=== PATIENT | female | born 1955 | race Caucasian/White ===

== ENCOUNTER → 2016-12-02 | Outpatient (REF) | payer BC | LOC: M LABDRAW1 12:43 | PROVIDERS: ATTEND Surgery | DX: Z08 Encounter for follow-up examination after completed treatment for malignant neoplasm (principal); Z85.038 Personal history of other malignant neoplasm of large intestine ==

== ENCOUNTER → 2017-05-06 | Outpatient (CLI) | payer BC ==
[~2017-05-06] MED LIST: DIOV80TA2 PO; MULT1CHW39 PO; VITA100067 PO
--- NOTE | 2017-05-06 09:51 | REPMRS ---
Patient History The patient states she had a clinical breast exam in 04/28 Patient is postmenopausal, has history of colorectal cancer at age 61, and is nulliparous. Family history of breast cancer in mother at age 62. Took hormonal contraceptives for 25 years. Digital Woman Screen Mammo: May 06, 2017 - Exam #: [id number] Bilateral CC and MLO view(s) were taken. Technologist: Fern Tello, Technologist Prior study comparison: December 12, 2009, bilateral screening mammogram, performed at [facility] ([facility]). FINDINGS: The breast tissue is heterogeneously dense. This may lower the sensitivity of mammography. This mammogram was interpreted with the aid of an FDA-approved computer-aided dectection system. A. Negative x-ray reports should not delay biopsy if a dominant or clinically suspicious mass is present. B. Not all cancers are identified by mammography. C. Adenosis and dense breast may obscure an underlying neoplasm. No significant changes when compared with prior studies. Finding: There is no dominnt mass, microcalcificcluster or architectural distortion that would indicate malignancy. There are benign punctate calcifications bilaterally, unchanged. ASSESSMENT: BI-RADS/ACR category 2 mammogram. Benign finding(s). Recommendation Routine screening mammogram in 1 year. Electronically Signed By: Vargas Hagen M.D. 05/06/17 0900
== END ==
LOC: M WHC 07:51
PROVIDERS: ATTEND Nurse Practitioner Women's Health
DX: Z12.31 Encounter for screening mammogram for malignant neoplasm of breast (principal); Z85.038 Personal history of other malignant neoplasm of large intestine; Z80.3 Family history of malignant neoplasm of breast; Z92.0 Personal history of contraception

== ENCOUNTER → 2017-05-06 | Outpatient (REF) | payer BC | LOC: M SFHCWAGY 08:34 | PROVIDERS: ATTEND Nurse Practitioner Women's Health | DX: Z12.4 Encounter for screening for malignant neoplasm of cervix (principal) ==

== ENCOUNTER → 2017-07-10 | Outpatient (CLI) | payer BC ==
[~2017-07-10] MED LIST changes: +GASTROGRAFIN SOLUTION 30ML (Q9963) As Ordered ONE; +ISOVUE-370 76% 100ML VIAL (Q9967) As Ordered ONE
--- NOTE | 2017-07-11 05:20 | REP ---
Clinical: History of rectal cancer for follow up. Technique: Axial contrast enhanced images from the lung bases to the pubic symphysis using oral and 100 ml Isovue 370 intravenous contrast material with precontrast images of the abdomen as well as coronal and sagittal re-formations. Comparison: 07/23/2016. Findings: Few scattered hepatic hypodensities compatible with benign cysts measuring up to 1.8 cm remains stable along with 2.4 cm hemangioma in the lateral segment left lobe. Spleen, pancreas, gallbladder, bilateral adrenal glands and kidneys are normal. The enteric system is without obstruction or acute inflammatory process. Evidence for prior resection and anastomoses at the rectosigmoid junction appears stable. No ascites. No adenopathy. No recurrence or mass lesion identified. Pelvis demonstrates collapsed bladder and age-appropriate uterus/adnexa. Vasculature is normal and without aneurysm or dissection. Musculoskeletal structures demonstrate age-related degenerative changes without focal osseous abnormality. Impression: 1. Hepatic cysts and hemangioma remains stable. 2. Evidence for prior partial resection at the rectosigmoid junction. No evidence for adenopathy, fluid, mass lesion or recurrence. 3. Chronic age-related changes. 4. No acute abdominopelvic pathology appreciated. Signed by Adeel uBrch MD 07/11/2017 05:12 A
--- NOTE | 2017-07-11 05:25 | REP ---
Clinical: History of rectal cancer for follow up. Technique: Axial contrast enhanced images from the thoracic inlet to the upper abdomen using 100 ml Isovue 370 intravenous contrast material with coronal and sagittal re-formations. Findings: Lung hubbard are well-aerated and demonstrate mild chronic-appearing age-related interstitial changes. Small scattered 2-3 mm noncalcified nodules and non solid ground-glass nodules (GGN) are randomly identified throughout the lung hubbard and nonspecific. No focal consolidation, further significant nodule or mass lesion appreciated. No pleural effusion/reaction or pneumothorax. Tracheobronchial tree is patent. No significant axillary, hilar, or mediastinal adenopathy. Mediastinum demonstrates normal thoracic aorta, heart and pericardium. Surrounding musculoskeletal structures are intact and without focal osseous abnormality. Impression: Chronic-appearing interstitial changes are suggested along with few scattered small 2-3 mm nodules and GGN which are nonspecific. However, given the patient's history a follow-up examination in 3-6 months may be warranted. Signed by Adeel Burch MD 07/11/2017 05:17 A
== END ==
LOC: M RAD 12:04
PROVIDERS: ATTEND Surgery
DX: D13.4 Benign neoplasm of liver (principal); D18.09 Hemangioma of other sites; Z85.038 Personal history of other malignant neoplasm of large intestine
CPT/HCPCS: 71260; 74178; Q9963; Q9967

== ENCOUNTER 2017-08-28 10:46 | Day surgery (SDC) | payer BC ==
[~2017-08-28] VITALS: Ht 154.9 cm; Wt 65.8 kg
[~2017-08-28 10:46] MED LIST changes: -GASTROGRAFIN SOLUTION 30ML (Q9963) As Ordered ONE; -ISOVUE-370 76% 100ML VIAL (Q9967) As Ordered ONE
[2017-08-28] MEDS ORDERED: NS 1,000 ML IV ONE (11:15)
--- NOTE | 2017-08-28 12:10 | ROOR ---
Patient Name: Lucy Barr Procedure Date: 08/28/2017 11:50 AM Date of : 1955 Age: 62 Room: [facility] Gender: Female Note Status: Finalized Procedure: Colonoscopy Indications: High risk colon cancer surveillance: Personal history of colon cancer Providers: Franky Dhaliwal Jr, MD Referring MD: Yonatan Rodriguez MD Requesting Provider: Medicines: Propofol per Anesthesia Complications: No immediate complications. Procedure: Pre-Anesthesia Assessment: - Prior to the procedure, a History and Physical was performed, and patient medications and allergies were reviewed. The patient is competent. The risks and benefits of the procedure and the sedation options and risks were discussed with the patient. All questions were answered and informed consent was obtained. Patient identification and proposed procedure were verified by the physician and the nurse in the pre-procedure area and in the procedure room. Mental Status Examination: alert and oriented. Airway Examination: normal oropharyngeal airway and neck mobility. Respiratory Examination: clear to auscultation. CV Examination: normal. ASA Grade Assessment: II - A patient with mild systemic disease. After reviewing the risks and benefits, the patient was deemed in satisfactory condition to undergo the procedure. The anesthesia plan was to use moderate sedation / analgesia (conscious sedation). Immediately prior to administration of medications, the patient was re-assessed for adequacy to receive sedatives. The heart rate, respiratory rate, oxygen saturations, blood pressure, adequacy of pulmonary ventilation, and response to care were monitored throughout the procedure. The physical status of the patient was re-assessed after the procedure. The Colonoscope was introduced through the anus and advanced to the cecum, identified by appendiceal orifice and ileocecal valve. The colonoscopy was performed without difficulty. The patient tolerated the procedure well. The quality of the bowel preparation was adequate and good. Findings: The rectum, sigmoid colon, descending colon, transverse colon, ascending colon, cecum, appendiceal orifice and ileocecal valve appeared normal. The anastomosis appeared normal. Impression: - The rectum, sigmoid colon, descending colon, transverse colon, ascending colon, cecum, appendiceal orifice and ileocecal valve are normal. - The colonic anastomosis is normal. - No specimens collected. Recommendation: - Discharge patient to home (ambulatory). - Repeat colonoscopy in 5 years for surveillance. Franky Dhaliwal MD Franky Dhaliwal Jr, MD 08/28/2017 12:09:26 PM This report has been signed electronically. Number of Addenda: 0 Note Initiated On: 08/28/2017 11:50 AM Estimated Blood Loss: Estimated blood loss: none.
[2017-08-28 12:30] VITALS: BP 137/65
[2017-08-28] MEDS ORDERED: PROPOFOL 200 MG/20 ML VIAL As Ordered ONE (12:33)
[2017-08-28] MEDS ORDERED: LIDOCAINE 2% INJ 100 MG/5 ML SDV (FOR ANES.) As Ordered ONE (12:33)
== END 2017-08-28 12:37 | disposition home or self-care (01) ==
LOC: M OPP 10:46
PROVIDERS: ATTEND Surgery
DX: Z08 Encounter for follow-up examination after completed treatment for malignant neoplasm (principal); Z85.038 Personal history of other malignant neoplasm of large intestine; Z98.0 Intestinal bypass and anastomosis status; I10 Essential (primary) hypertension; M19.90 Unspecified osteoarthritis, unspecified site; Z78.0 Asymptomatic menopausal state; Z79.899 Other long term (current) drug therapy; Z80.8 Family history of malignant neoplasm of other organs or systems; Z80.3 Family history of malignant neoplasm of breast

== ENCOUNTER → 2017-10-28 | Outpatient (CLI) | payer BC ==
[~2017-10-28] MED LIST changes: -DIOV80TA2 PO; +ISOVUE-370 76% 100ML VIAL (Q9967) As Ordered; -MULT1CHW39 PO; -VITA100067 PO
== END ==
LOC: M RAD 09:11
DX: R91.8 Other nonspecific abnormal finding of lung field (principal); Z85.048 Personal history of other malignant neoplasm of rectum, rectosigmoid junction, and anus
CPT/HCPCS: Q9967

== ENCOUNTER → 2018-05-07 | Outpatient (CLI) | payer BC | LOC: M WHC 07:50 | DX: Z12.31 Encounter for screening mammogram for malignant neoplasm of breast (principal) | CPT/HCPCS: G0123 ==

== ENCOUNTER → 2018-05-07 | Outpatient (REF) | payer BC | LOC: M SFHCWAGY 08:07 | DX: Z12.4 Encounter for screening for malignant neoplasm of cervix (principal); N95.2 Postmenopausal atrophic vaginitis ==

== ENCOUNTER → 2019-05-10 | Outpatient (CLI) | payer BC ==
[~2019-05-10] MED LIST changes: +DIOV80TA2 PO; -ISOVUE-370 76% 100ML VIAL (Q9967) As Ordered; +MULT200T7 PO; +VITA100067 PO
--- NOTE | 2019-05-10 09:05 | REP ---
BILATERAL SCREENING DIGITAL MAMMOGRAM WITH 3D TOMOSYNTHESIS: There are no palpable abnormalities or other breast complaints. The the patient states she had a clinical breast examination April/2019. The the patient states she performs self-breast examinations six times per year The Tyrer-Cuzick Score is: 16.2% . Comparison is 04/13/2013. There are scattered areas of fibroglandular density. There is no dominant mass, micro calcific cluster or architectural distortion that would indicate malignancy. There are no additional findings on 3D tomosynthesiss. There is no change from the prior study. Impression: BIRADS/ACR category 1 mammogram. Negative. Recommendation: Routine annual screening mammography. This mammogram was interpreted with the aid of a FDA approved computer-aided detection system. A. Negative mammogram reports should not delay biopsy if a dominant or clinically suspicious mass is present. B. Not all breast cancers are identified by mammography or tomosynthesis. C. Adenosis and dense breasts may obscure an underlying neoplasm. Patient letter M1. Electronically Signed by Vargas Hagen MD 05/10/2019 08:57 A
== END ==
LOC: M WHC 08:22
PROVIDERS: ATTEND Nurse Practitioner Women's Health
DX: Z12.31 Encounter for screening mammogram for malignant neoplasm of breast (principal); Z80.3 Family history of malignant neoplasm of breast

== ENCOUNTER → 2019-11-02 | Outpatient (CLI) | payer BC ==
[~2019-11-02] MED LIST changes: +PROHANCE 279.3MG/ML 15ML VIAL (A9576) As Ordered ONE
--- NOTE | 2019-11-02 17:07 | REP ---
Bilateral breast MRI study without and with IV gadolinium: History: Positive family history breast carcinoma. High-risk screening. Comparison mammography May 10, 2019. Technique: Three Yamel MRI imaging was performed with a dedicated breast coil. Axial, coronal, and sagittal T1 and T2-weighted scans were obtained with and without fat saturation in the usual fashion. The study includes dynamically acquired post gadolinium enhanced imaging subtraction imaging. Maximal intensity projection and multiplanar re-formation imaging is included as well. The study was interpreted with the aid of [employer], an FDA approved computer-aided detection (CAD) software program, on a dedicated breast MRI work station. The gadolinium enhancement dose is 14 ml of intravenous ProHance. Findings: There is some contour deformity of the anterior breast tissue bilaterally because of some padding which was placed in the breast coil to prevent skin contact with the coil element in order to improve homogeneity of fat saturation. In any event, this contour deformity is artifactual. There is a mild pattern of scattered breast parenchymal fibroglandular elements. There is no evidence of axillary lymphadenopathy or breast cystic change. Incidental note is made of a T2 hyperintense hepatic lesion in the dome of the liver 2.1 cm in greatest diameter. This does not enhance on postcontrast images and is felt to be compatible with a hepatic cyst. Indeed, this is visible on CT images of the abdomen from July 10, 2017. It is unchanged. There is a second smaller subcentimeter cyst in the left lobe. In addition, the left lobe of the liver does contain an enhancing hemangioma 2.3 cm in diameter. This is also seen on the [address] study and is unchanged. There is no evidence of significant breast cystic change. There is mild pattern of background parenchymal enhancement. No suspicious morphologic abnormality is seen in either breast on high-resolution pre and post contrast images. Dynamically acquired sequential post contrast images show a mild pattern of punctate background parenchymal enhancement. No suspicious area of enhancement and washout is seen in either breast to suggest malignancy. Subtraction images are unremarkable. Impression: BIRADS category 2 benign findings. Benign stable hepatic cysts and left lobe hepatic hemangioma noted incidentally. Electronically Signed by Armond Britt MD 11/03/2019 01:14 P
== END ==
LOC: M RAD 14:27
PROVIDERS: ATTEND Nurse Practitioner Women's Health
DX: Z12.39 Encounter for other screening for malignant neoplasm of breast (principal); Z80.3 Family history of malignant neoplasm of breast; Z80.41 Family history of malignant neoplasm of ovary
CPT/HCPCS: A9576; C8908

== ENCOUNTER → 2020-05-11 | Outpatient (REF) | payer BC, MEDICARE ==
[~2020-05-11] MED LIST changes: -PROHANCE 279.3MG/ML 15ML VIAL (A9576) As Ordered ONE
== END ==
LOC: M SFHCWAGY 19:47
PROVIDERS: ATTEND Nurse Practitioner Women's Health
DX: Z12.4 Encounter for screening for malignant neoplasm of cervix (principal); N95.2 Postmenopausal atrophic vaginitis

== ENCOUNTER → 2020-05-11 | Outpatient (CLI) | payer BC, MEDICARE ==
--- NOTE | 2020-06-06 13:24 | REPMRS ---
Patient History The patient states she had a clinical breast exam in April 2020.Patient is postmenopausal, has history of colorectal cancer at age 61, and is nulliparous. Family history of breast cancer at age 62 in mother, ovarian cancer at age 50 or over in maternal aunt, breast cancer under age 50 in maternal aunt. Took hormonal contraceptives for 25 years. Digital Woman Screen Mammo: May 11, 2020 - Exam #: [id number] Bilateral CC and MLO view(s) were taken. Technologist: Casandra Hutchins, Technologist Prior study comparison: May 10, 2019, bilateral digital woman screen mammo performed at [facility]. May 07, 2018, bilateral digital woman screen mammo performed at [facility]. May 06, 2017, digital woman screen mammo performed at [facility]. FINDINGS: The breast tissue is almost entirely fat. The Volpara volumetric breast density category is: A. There has been no change in the appearance of the mammogram from the prior studies. There is no interval development of dominant mass, architectural distortion, or grouped microcalcification typical of malignancy. 3-D tomosynthesis shows no additional findings. Report was delayed due to a protracted computer network disruption experienced by this facility. No significant changes when compared with prior studies. Assessment: BI-RADS/ACR category 1 mammogram. Negative Mammogram. Recommendation Routine screening mammogram of both breasts in 1 year (for women over age 40). This patient's Lifetime Breast Cancer RIsk is estimated at 15.4 %. This mammogram was interpreted with the aid of an FDA-approved computer-aided dectection system. Electronically Signed By: Rodrigo Britt MD 06/06/20 0709
--- NOTE | 2020-06-13 13:08 | DEXA ---
AP SPINE L2 - L4 0.980 -1.7 -0.1 LT FEMUR TOTAL 0.905 -0.8 0.4 LT NECK 0.813 -1.6 -0.2 RT FEMUR TOTAL 0.860 -1.2 0.0 RT NECK 0.797 -1.7 -0.3 TOTAL BODY TOTAL OTHER COMMENTS: There is low bone density of the spine and hips. The density of the spine has decreased 6.8% since the initial exam on 12/01/2007. The decreased 5.6% since the most recent exam on 12/12/2009. The density of the left hip has decreased 10% since the initial exam on 12/01/2007. The density of the left hip is 0% since the most recent exam on 12/12/2009. The density of the right hip has decreased 12.7% since the initial exam on 12/01/2007. The density of the right hip has decreased 10.7% since the most recent exam on 12/12/2009. FOLLOW-UP: Recommendation for the next bone density exam: 2 years. PATTI
== END ==
LOC: M WHC 13:35
PROVIDERS: ATTEND Nurse Practitioner Women's Health
DX: Z01.419 Encounter for gynecological examination (general) (routine) without abnormal findings (principal); Z12.31 Encounter for screening mammogram for malignant neoplasm of breast; Z78.0 Asymptomatic menopausal state; Z85.038 Personal history of other malignant neoplasm of large intestine; Z80.3 Family history of malignant neoplasm of breast; Z92.0 Personal history of contraception
CPT/HCPCS: 77063; 77067; 77080; G0101; G0123

== ENCOUNTER → 2021-02-03 | Outpatient (CLI) | payer BC ==
[~2021-02-03] MED LIST changes: +D31000CA4 PO; +HYDR12.55 PO; +LOSA50TA88 PO; +MULT1TAB50 PO
== END ==
LOC: M LABSMTC 08:59
PROVIDERS: ATTEND Anesthesiology
DX: Z01.818 Encounter for other preprocedural examination (principal); Z11.52 Encounter for screening for COVID-19

== ENCOUNTER → 2021-04-09 | Outpatient (REF) | payer MEDICARE, BC | LOC: M LAB REF 11:26 | PROVIDERS: ATTEND Family Medicine | DX: Z85.048 Personal history of other malignant neoplasm of rectum, rectosigmoid junction, and anus (principal) ==

== ENCOUNTER → 2021-05-15 | Outpatient (CLI) | payer MEDICARE, BC ==
--- NOTE | 2021-05-15 10:07 | REPMRS ---
Patient History The patient states she had a clinical breast exam in May 2021. Family history of breast cancer at age 62 in mother, ovarian cancer at age 50 or over in maternal aunt, breast cancer under age 50 in maternal aunt. Took hormonal contraceptives for 25 years. Patient states no breast complaints today. Patient has signed MRS History Sheet. Digital Woman Screen Mammo: May 15, 2021 - Exam #: [id number] Bilateral CC and MLO view(s) were taken. Technologist: Fern Tello, Technologist Prior study comparison: May 11, 2020, bilateral digital woman screen mammo performed at [facility]. May 10, 2019, bilateral digital woman screen mammo performed at [facility]. FINDINGS: There are scattered fibroglandular densities. Screening. Digital screening (2D) mammography was performed bilaterally in the CC and MLO projections. Additionally, breast tomosynthesis (3D mammography) was performed bilaterally in the CC and MLO projections. Todays exam was compared to the prior exam/exams. By history, the patient has no complaints of a palpable breast abnormality or other significant breast complaints. The breasts are unchanged in size and shape. There are no aidan-soft tissue densities or spiculated masses. There is no internal architectural distortion. Once again, stable benign appearing calcifications are seen.There are no suspicious aidan-calcific clusters. Skin thickening or nipple retraction is not present. IMPRESSION: BI-RADS Category 2- Benign Findings. There is no evidence of malignant alteration of the breasts. Followup examination recommended in one year. The Volpara volumetric breast density category is B, there are scattered areas of fibroglandular densities. This mammogram was read with the assistance of [employer],an FDA approved computer aided detection system for mammography. The lifetime Tyrer-Cuzick score is 14.6 % Negative x-ray reports should not delay surgical consultation if a dominant or clinically suspicious mass is present. Not all breast cancers can be identified by mammography. Therefore, we recommend that you continue to perform regular breast self-examination and physical examination and then promptly contact your physician of any concerns or changes. Adenosis and dense breasts may obscure an underlying neoplasm. Assessment: BI-RADS/ACR category 2 mammogram. Benign Findings. Recommendation Routine screening mammogram of both breasts in 1 year. Electronically Signed By: Surjit Sam DO 05/15/21 1007
== END ==
LOC: M WHC 08:56
PROVIDERS: ATTEND Nurse Practitioner Women's Health
DX: Z12.31 Encounter for screening mammogram for malignant neoplasm of breast (principal); Z80.3 Family history of malignant neoplasm of breast; Z12.4 Encounter for screening for malignant neoplasm of cervix
CPT/HCPCS: 77063; 77067; G0101

== ENCOUNTER → 2022-06-28 | Outpatient (CLI) | payer MEDICARE, BC ==
[~2022-06-28] MED LIST changes: +LOSA50TA28 PO; -LOSA50TA88 PO
== END ==
LOC: M WHC 14:22
PROVIDERS: ATTEND Advanced Practice Midwife
DX: Z12.31 Encounter for screening mammogram for malignant neoplasm of breast (principal)

== ENCOUNTER → 2022-10-11 | Outpatient (REF) | payer MEDICARE, BC | LOC: M LAB REF 12:36 | PROVIDERS: ATTEND Family Medicine | DX: Z85.048 Personal history of other malignant neoplasm of rectum, rectosigmoid junction, and anus (principal) ==

== ENCOUNTER → 2023-02-26 | Outpatient (REF) | payer MEDICARE, BC | LOC: M LAB REF 16:16 | PROVIDERS: ATTEND Family Medicine | DX: C20 Malignant neoplasm of rectum (principal) ==

== ENCOUNTER → 2023-04-21 | Outpatient (REF) | payer MEDICARE, BC | LOC: M LAB REF 16:43 | PROVIDERS: ATTEND Family Medicine | DX: Z85.048 Personal history of other malignant neoplasm of rectum, rectosigmoid junction, and anus (principal) ==

== ENCOUNTER → 2023-07-03 | Outpatient (CLI) | payer MEDICARE, BC | LOC: M WHC 09:17 | PROVIDERS: ATTEND Advanced Practice Midwife | DX: Z12.31 Encounter for screening mammogram for malignant neoplasm of breast (principal); Z80.3 Family history of malignant neoplasm of breast ==

== ENCOUNTER → 2024-04-23 | Outpatient (REF) | payer MEDICARE, BC | LOC: M LAB REF 12:36 | PROVIDERS: ATTEND Family Medicine | DX: Z85.048 Personal history of other malignant neoplasm of rectum, rectosigmoid junction, and anus (principal) ==

== ENCOUNTER → 2024-07-07 | Outpatient (CLI) | payer MEDICARE, BC | LOC: M WHC 09:14 | PROVIDERS: ATTEND Advanced Practice Midwife | DX: Z12.31 Encounter for screening mammogram for malignant neoplasm of breast (principal) ==

== ENCOUNTER → 2024-07-07 | Outpatient (CLI) | payer MEDICARE, BC ==
[~2024-07-07] MED LIST changes: -MULT200T7 PO; +MULT200T9 PO
== END ==
LOC: M WHC 09:15
PROVIDERS: ATTEND Advanced Practice Midwife
DX: M85.88 Other specified disorders of bone density and structure, other site (principal); M85.851 Other specified disorders of bone density and structure, right thigh; M85.852 Other specified disorders of bone density and structure, left thigh; Z13.820 Encounter for screening for osteoporosis; Z12.31 Encounter for screening mammogram for malignant neoplasm of breast

== ENCOUNTER → 2024-10-26 | Outpatient (REF) | payer MEDICARE, BC | LOC: M LAB REF 12:14 | PROVIDERS: ATTEND Family Medicine | DX: E83.52 Hypercalcemia (principal) ==

== ENCOUNTER → 2025-05-09 | Outpatient (REF) | payer MEDICARE, BC | LOC: M LAB REF 11:58 | PROVIDERS: ATTEND Family Medicine | DX: Z85.048 Personal history of other malignant neoplasm of rectum, rectosigmoid junction, and anus (principal) ==

== ENCOUNTER → 2025-07-20 | Outpatient (CLI) | payer MEDICARE, BC | LOC: M WHC 09:14 | PROVIDERS: ATTEND Advanced Practice Midwife | DX: Z12.31 Encounter for screening mammogram for malignant neoplasm of breast (principal); R92.313 Mammographic fatty tissue density, bilateral breasts ==